=== PATIENT | female | born 1995 | race Caucasian/White ===

== ENCOUNTER 2016-09-03 08:07 | Emergency (ER) | payer OTHER ==
[2016-09-03] MEDS ORDERED: Lidocaine 1% 30 ML SDV INJECT ONE (08:18)
[2016-09-03] MEDS ORDERED: Bacitracin Oint 1 GM U/D Packet TOP ONE (08:18)
[2016-09-03] MEDS ORDERED: Diphtheria,Pertussis(Acell),Tetanus Vaccine 0.5 ML SDV IM ONE (08:18)
--- NOTE | 2016-09-03 08:18 | EDM.PDOC ---
ED HPI Trauma - General Chief Complaint: Upper Extremity Injury/Pain Stated Complaint: W/COMP; RT INDEX FINGER Time Seen by Provider: 09/03/16 08:13 Source: Reports: Patient, RN, RN notes reviewed History Limitations: Reports: No limitations - History of Present Illness INITIAL COMMENTS - FREE TEXT/NARRATIVE: Cut left thumb on sharp carlos at work. Denies any other injury. Last tetanus vaccine >10yrs ago. Symptom Onset Date: 09/03/16 Occurred When: this morning Occurred Where: work Method of Injury: other (laceration) Severity: moderate Pain/Injury Location: Reports: upper extremity, left Consciousness: Reports: no loss of consciousness, remembers incident Associated Symptoms: Reports: no other symptoms Allergies/ADRs: Allergies No Known Allergies Allergy (Verified 09/03/16 08:17) Home Medications: Ambulatory Orders Control 1 tab PO DAILY 09/03/16 Past Medical History - Past Health History Medical/Surgical History: Denies Medical/Surgical History Social & Family History - Family History Family Medical History: Noncontributory - Living Situation & Occupation Living situation: Reports: with family Occupation: employed Review of Systems - Review of Systems Review Of Systems: ROS reveals no pertinent complaints other than HPI. Trauma Exam - Physical Exam Exam: See Below Exam Limited By: No limitations General Appearance: Reports: alert, WD/WN, no apparent distress Head: Reports: atraumatic, normocephalic Throat/Mouth: Reports: Normal voice, No airway compromise Respiratory Exam: Reports: no respiratory distress Cardiovascular: Reports: normal peripheral pulses Extremities: Reports: normal range of motion, pain with movement (left thumb), tenderness (at area of left thumb laceration). Denies: bony-point tenderness Neurologic: Reports: no motor/sensory deficits, alert, normal mood/affect, oriented x 3 Skin: Reports: Other (left thumb with ousmane-lateral 2.5cm linear laceration to depth of subcutaneous tissue, no active bleeding) ED TRAUMA EXTREMITY PROCEDURES - Laceration/Wound Repair Left Anterior Finger Lac/wound length in cm: 2.5 (left thumb) Appearance: subcutaneous, linear, clean Distal NVT: neuro & vascular intact, no tendon injury Anesthetic type: local Local anesthesia - Lidocaine (Xylocaine): 1% plain Local anesthetic volume: other (10cc) Skin prep: chlorhexidine (hibiciens), saline, sterile drape Saline irrigation (cc's): 500 Exploration/Debridement/Repair: wound explored, in a bloodless field, explored to base, minimal debridement, minimally undermined, no foreign material found Closed with: sutures Suture size: 4-0 # of sutures: 7 Suture type: nylon, interrupted Drain placement: No Tetanus status addressed: Yes Complications: No Course - Vital Signs Last Recorded V/S: Last Vital Signs Temp 35.4 C 09/03/16 08:18 Pulse 78 09/03/16 08:18 Resp 18 09/03/16 08:18 BP 113/58 L 09/03/16 08:18 Pulse Ox 100 09/03/16 08:18 - Orders/Labs/Meds Orders: Active Orders 24 hr Category Date Time Status Vaccines to be Administered [RC] PER UNIT ROUTINE Care 09/03/16 08:18 Ordered Meds: Medications Discontinued Medications Generic Name Dose Route Start Last Admin Trade Name Justinq PRN Reason Stop Dose Admin Bacitracin 1 dose 09/03/16 08:18 09/03/16 08:29 Bacitracin Oint 1 Gm TOP 09/03/16 08:19 1 dose ONETIME ONE Administration Diphtheria/Tetanus/Acell Pertussis 0.5 ml 09/03/16 08:18 09/03/16 08:29 Adacel IM 09/03/16 08:19 0.5 ml .ONCE ONE Administration Lidocaine HCl 30 ml 09/03/16 08:18 09/03/16 08:27 Xylocaine-Mpf 1% INJECT 09/03/16 08:19 30 ml ONETIME ONE Administration Departure - Departure Time of Disposition: 08:49 Disposition: Home, Self-Care 01 Condition: good Clinical Impression: Work related injury Laceration of thumb without complication Qualifiers: Encounter type: initial encounter Laterality: left Qualified Code(s): S61.012A - Laceration without foreign body of left thumb without damage to nail, initial encounter Instructions: Sutured Wound Care, [id number] Additional Instructions: Follow up in clinic in 7 to 10 days for suture removal. - My Orders Last 24 Hours: My Active Orders 09/03/16 08:18 Vaccines to be Administered [RC] PER UNIT ROUTINE - Assessment/Plan Last 24 Hours: My Active Orders 09/03/16 08:18 Vaccines to be Administered [RC] PER UNIT ROUTINE
[2016-09-03 08:29] VITALS: BP 113/58
== END 2016-09-03 09:03 | disposition home or self-care (01) ==
LOC: DL.ED 08:07
DX: S61.012A Laceration without foreign body of left thumb without damage to nail, initial encounter (principal); Z23 Encounter for immunization; W26.8XXA Contact with other sharp object(s), not elsewhere classified, initial encounter; Y99.0 Civilian activity done for income or pay
CPT/HCPCS: 12001; 90715; 99283; L3999